=== PATIENT | female | born 1990 | race Two or more races ===

== ENCOUNTER → 2019-02-18 | Day surgery (SDC) | payer OTHER | END | disposition home or self-care (01) | LOC: ADM 02-09 15:00 → AMB-ENDOS 11:32 | DX: D13.1 Benign neoplasm of stomach (principal); K44.9 Diaphragmatic hernia without obstruction or gangrene ==

== ENCOUNTER 2021-11-16 07:00 | Day surgery (SDC) | payer OTHER ==
[~2021-11-16 07:00] MED LIST: IRON325 MG PO
== END 2021-11-17 | disposition home or self-care (01) ==
LOC: CIR.AMB 07:00
PROVIDERS: ATTEND Plastic Surgery
DX: Z98.84 Bariatric surgery status (principal); E66.01 Morbid (severe) obesity due to excess calories; N62 Hypertrophy of breast; M79.3 Panniculitis, unspecified; R63.4 Abnormal weight loss; Z20.822 Contact with and (suspected) exposure to COVID-19